=== PATIENT | male | born 1950 | race Caucasian/White ===

== ENCOUNTER 2016-06-01 05:23 | Inpatient (IN) | payer BC ==
[~2016-06-01] VITALS: Ht 172.7 cm; Wt 86.3 kg
[~2016-06-01 05:23] MED LIST: Atarax,Vistaril PO; B-COMPLEX-VITA1 EACH PO; CENTRUM MEN'S1 EACH PO; CINNAMON500 MG PO; COUMADIN2.5 MG PO; Coumadin,Jantoven PO; FISH OIL 1,2001 EAC4 PO; FLOMAX0.4 MG PO; IRON325 M1 PO; LIPITOR10 MG PO; LO-DOSE ASPIRIN81 M2 PO; NAPROSYN500 MG PO; NAPROXEN500 MG PO; PERCOCET 5/31 TABLET PO; Percocet 5/325,Endoc PO; TAMSULOSIN HCL0.4 MG PO; VISTARIL25 MG PO; VITAMIN D2000 UNIT PO; Vitamin D PO
[2016-06-01 06:07] VITALS: BP 164/87
[2016-06-01 14:57] VITALS: BP 151/81
[2016-06-01 19:51] VITALS: BP 130/72
[2016-06-01 23:52] VITALS: BP 127/72
[2016-06-02 03:41] VITALS: BP 117/69
[2016-06-02 07:51] VITALS: BP 132/72
[2016-06-02] MEDS ORDERED: OXAYDO5 MG PO (11:03)
== END 2016-06-02 12:59 | disposition home or self-care (01) | DRG 483 ==
LOC: 2SOUTH 05:23 → 3EAST 14:28 → 2SOUTH 14:49 → 3EAST 06-02 12:59
PROC: 0RRK0JZ Replacement of Left Shoulder Joint with Synthetic Substitute, Open Approach (ICD-10-PCS; principal; 2016-06-01)
DX: M19.012 Primary osteoarthritis, left shoulder (principal); K21.9 Gastro-esophageal reflux disease without esophagitis; I12.9 Hypertensive chronic kidney disease with stage 1 through stage 4 chronic kidney disease, or unspecified chronic kidney disease; N18.3 Chronic kidney disease, stage 3 (moderate); I45.10 Unspecified right bundle-branch block; E78.5 Hyperlipidemia, unspecified; E78.00 Pure hypercholesterolemia, unspecified; E66.9 Obesity, unspecified; Z68.30 Body mass index [BMI] 30.0-30.9, adult; Z87.891 Personal history of nicotine dependence
CPT/HCPCS: 86850; 86900; 86901; 94799; C1776; J0330; J0690; J1100; J2250; J2405; J2795; J3010; J7050; J7120